=== PATIENT | female | born 1980 | race Caucasian/White ===

== ENCOUNTER 2021-06-28 13:46 | Outpatient (CLI) | payer BC, OTHER, SELFPAY ==
--- NOTE | ~2021-06-28 | US_ITS ---
EXAMINATION: US soft tissue UE LT DATE: 06/28/2021 14:09 INDICATION: Localized swelling at the posterior left shoulder TECHNIQUE: Multiple grayscale and Doppler ultrasound images of the region of concern posterior to the left shoulder were obtained. COMPARISON: None FINDINGS/IMPRESSION: Nonspecific 3.9 x 3.2 x 1.3 cm ovoid mass at the region of concern. 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 Reviewed, dictated and finalized at location A.
== END 2021-06-28 13:47 ==
PROVIDERS: PCP Physician Assistant; Visit Provider Physician Assistant
DX: R22.32 Localized swelling, mass and lump, left upper limb (principal)
CPT/HCPCS: 76882

== ENCOUNTER 2021-08-21 00:42 | Observation (INO) | payer BC, SELFPAY ==
[2021-08-21] VITALS (16 sets, daily range): BP systolic 102–147; BP diastolic 58–109; PULSE 62–180; RESP 12–20; TEMP 36.1–36.9; O2SAT 99–100; BMI 34.2; BMI 34.1
--- NOTE | ~2021-08-21 | XR_ITS ---
EXAMINATION: XR chest 1V portable DATE: 08/21/2021 02:08 INDICATION: Tachycardia. Palpitations. TECHNIQUE: frontal view of the chest was obtained. COMPARISON: None FINDINGS: The lungs are clear with no focal airspace opacities, pulmonary edema, pleural effusion or pneumothor ax. The cardiomediastinal silhouette is normal. Visualized bones and soft tissues are unremarkable. IMPRESSION: 1. No acute cardiopulmonary disease. Reviewed, dictated and finalized at location A.
--- NOTE | 2021-08-21 00:45 | PC.NURSE ---
Addendum entered by Clarissa Jaramillo RN 08/21/21 00:47: Patients HR. Original Note: During triage, patients ranged from 60s-130s.
--- NOTE | 2021-08-21 01:17 | PC.NURSE ---
Addendum entered by Tyrone Wright RN 08/21/21 01:21: Pt was placed on defibrillator at the time of this procedure. Original Note: Pt brought to room and placed on athletic monitor and heart rate found to be in the 190's. Dr. Dooley notified and brought to the bedside. VORB received and administered for 6mg of adenosine at 0058. 12mg administered at 0002, with another 12 administered at 0105. Pt has not been responsive to the medication. Synchronized cardioversion suggested to pt but pt and father decide against electricity at this time. Will take a medication management route at this time.
--- NOTE | 2021-08-21 01:19 | ECG_ITS ---
Measurements Intervals [place] Rate: 0 P: MN: 0 QRS: QRSD: 0 T: QT: 0 QTc: 0 Interpretive Statements ATRIAL FIBRILLATION WITH RAPID VENTRICULAR RESPONSE BORDERLINE ST-T WAVE ABNORMALITY- DIFFUSE LEADS BASELINE ARTIFACT- I, II, AVR, AVL, AVF, V4-V6 ABNORMAL ECG Electronically Signed On 08-21-2021 6:53:04 CDT by Jermain Jalloh D.O.
[2021-08-21] MEDS: dilTIAZem HCl INJ 25 MG/5 ML VIAL 10 MG IV PUSH (01:22)
[2021-08-21] MEDS: dilTIAZem 100 MG/100 ML 100 MG/100 ML BAG IV CONT (01:23)
[2021-08-21] MEDS: SODIUM CHLORIDE 0.9% IV 1,000 ML 999 ML IV CONT (01:24)
--- NOTE | 2021-08-21 01:25 | ECG_ITS ---
Measurements Intervals [place] Rate: 125 P: MO: 0 QRS: 53 QRSD: 99 T: 31 QT: 310 QTc: 447 Interpretive Statements ATRIAL FIBRILLATION WITH RAPID VENTRICULAR RESPONSE ABNORMAL ECG Electronically Signed On 08-21-2021 6:53:29 CDT by Jermain Jalloh D.O.
[2021-08-21 01:26] LABS: Basophils Absolute Auto 0.1 K/mm3 (0.0-0.1); Basophils Percent Auto 0.5 % (0.2-1.2); Eosinophils Absolute Auto 0.2 K/mm3 (0-0.3); Eosinophils Percent Auto 1.9 % (0-4.4); Hematocrit 34.4 % (37.0-47.0); Hemoglobin 9.8 g/dL (12.0-15.0); Immature Granulocyte Absolute 0.03 K/mm3 (0.00-0.031); Immature Granulocyte Percent A 0.3 % (0-0.5); Lymphocytes Absolute Auto 3.21 K/mm3 (0.9-3.2); Lymphocytes Percent Auto 33.8 % (18.3-44.2); Mean Corpuscular HGB Conc 28.5 g/dl (32-36); Mean Corpuscular Hemoglobin 19.8 pg (26-34); Mean Corpuscular Volume 69.6 fl (80-100); Mean Platelet Volume 10.3 fl (7.4-10.4); Monocytes Absolute Auto 0.8 K/mm3 (0.1-0.6); Neutrophils Absolute Auto 5.3 K/mm3 (1.3-6.7); Neutrophils Percent Auto 55.5 % (45.5-73.1); Platelet Count Result 331 k/mm3 (150-375); Red Blood Count 4.94 M/mm3 (4.2-5.4); Red Cell Distribution Width 19.1 % (11.5-14.5); White Blood Count 9.5 K/mm3 (4.5-10.0)
[2021-08-21 01:39] LABS: Alanine Aminotransferase 19 U/L (6-35); Albumin Level 4.6 g/dL (3.5-5.1); Alkaline Phosphatase 87 U/L (38-126); Anion Gap 5 mmol/L (8-16); Aspartate Amino Transferase 34 U/L (14-36); Bilirubin,Total 0.4 mg/dL (0.2-1.3); Blood Urea Nitrogen 16 mg/dL (7-17); Calcium 9.1 mg/dL (8.4-10.2); Carbon Dioxide 26 mmol/L (22-30); Chloride 105 mmol/L (98-107); Estimated Glomerular Filt Rate > 60; Glucose 101 mg/dL (65-110); Potassium 3.6 mmol/L (3.4-5.0); Sodium 136 mmol/L (137-145)
[2021-08-21 01:51] LABS: Add Urine Microscopic? NO; Appearance Urine Clear (Clear); Bilirubin Urine Negative (Negative); Blood Urine Negative (Negative); Color Urine Yellow (Yellow); Glucose Urine UA Negative (Negative); Ketones Urine Negative (Negative); Leukocyte Esterase Ur Negative LEU/UL (Negative); Nitrate Urine Negative (Negative); Protein Urine Negative (Negative); Urobilinogen Urine 0.2 mg/dL (<2.0)
[2021-08-21] MEDS: ADENOSINE IV SOLN 6 MG/2 ML VIAL IV PUSH (01:54)
[2021-08-21 01:55] LABS: Mucus Urine Rare /lpf; Squamous Epithelial Cell Urine Rare /hpf (Few); WBC Urine 0-3 /hpf
[2021-08-21] MEDS: ADENOSINE IV SOLN 6 MG/2 ML VIAL 12 MG IV PUSH ×2 (01:55→01:56)
[2021-08-21 01:58] LABS: Anisocytosis 2+ (NORMAL); Hypochromasia 3+ (NORMAL); Microcytosis 2+ (NORMAL); Platelet Estimate Adequate (Adequate)
[2021-08-21 01:59] LABS: Stomatocytes 1+ (NORMAL)
--- NOTE | 2021-08-21 02:14 | ED.ARRPALP ---
HPI - Arrhythmia/Palpitations General Chief Complaint: Arrhythmia/Palpitations Stated Complaint: Rapid HR Time Seen by Provider: 08/21/21 00:51 Source: patient History of Present Illness HPI narrative: Patient presents with palpitations. Patient reports her symptoms started just prior to coming to the emergency room she denies any chest pain just feels like her heart rate is really fast. Denies any prior similar symptoms denies any history of cardiac arrhythmias. Denies any recent fevers, cough, congestion denies any abdominal pain nausea vomiting or diarrhea. Related Data Allergies Allergy/AdvReac Type Severity Reaction Status Date / Time No Known Allergies Allergy Unverified 07/01/20 11:20 Review of Systems Review of Systems: CONSTITUTIONAL: Denies fever, chills, or sweats. EYES: Denies visual changes, redness, or discharge. ENT: Denies rhinorrhea, congestion, sore throat, or otalgia. CARDIOVASCULAR: Denies chest pain,or edema. RESPIRATORY: Denies cough or dyspnea. GASTROINTESTINAL: Denies abdominal pain, nausea, vomiting, or diarrhea. GENITOURINARY: Denies dysuria or hematuria. SKIN: Denies rash or itching. MUSCULOSKELETAL: Denies back pain, joint pain, or myalgia. NEUROLOGIC: Denies headache, numbness, dizziness, or weakness. PSYCHIATRIC: Denies anxiety or depression. All systems reviewed & are unremarkable except as noted in HPI and below PMFSH Surgical History Surgical History (Updated 08/21/21 @ 02:22 by Bk Dooley MD) H/O gastric bypass Family History Family History Father Family history of obesity Mother Family history of obesity Family history of mental disorder Sibling Family history of obesity Family history of attention deficit hyperactivity disorder (ADHD) Grandparent Family history of obesity Social History Social History Smoking status: Never smoker Second hand tobacco smoke exposure: No Alcohol intake: current Drinks per week: 0 Substance use type: does not use Spiritual care concerns: No Exam Narrative: GENERAL: Well-appearing, well-nourished, and in no acute distress. HEAD: Normocephalic, atraumatic. EYES: PERRLA and EOMI. ENT: Nares clear, no rhinorrhea or epistaxis. Mucous membranes moist. NECK: Supple. No masses. No JVD CHEST: Clear to auscultation. No respiratory distress. No wheezes rales or rhonchi HEART: Tachycardia. Normal peripheral pulses. ABDOMEN: Soft, nontender, nondistended, normal active bowel sounds. EXTREMITIES: Normal range of motion. No edema. SKIN: Warm, dry, no rash. NEURO: No focal deficits. Alert and oriented x3. PSYCH: Normal mood and affect. Course Reevaluation(s) Reevaluation #1: Patient reports feeling much improved results thus far reviewed with patient. Patient is comfortable inpatient plan. Date: 08/21/21 Time: 02:24 Vital Signs Vital signs: Vital Signs Pulse Rate 97 08/21/21 00:43 Respiratory Rate 20 08/21/21 00:43 Blood Pressure 147/109 H 08/21/21 00:43 Pulse Oximetry 100 08/21/21 00:43 Oxygen Delivery Room Air 08/21/21 00:43 Temperature 36.1 C L 08/21/21 03:39 Pulse Rate 120 H 08/21/21 03:39 Respiratory Rate 12 08/21/21 03:39 Blood Pressure 108/59 L 08/21/21 03:39 Pulse Oximetry 100 08/21/21 03:39 Oxygen Delivery Room Air 08/21/21 00:43 MDM - Arrhythmia/Palpitations MDM Narrative Medical decision making narrative: Patient presents with palpitations patient was tachycardic to the 200s concerning for SVT. Attempted vagal maneuvers without successdefibrillator was placed patient was given 6 then 12 then 12 of adenosine and there was a pause in her rate however patient continued to return to a heart rate in the 200s. Given lack of success with IV medications I discussed synchronized cardioversion patient initially amenable to it however patient talk to her father wa
--- NOTE | 2021-08-21 02:20 | PC.NURSE ---
Diltiazim drip titrated to 10mg/hr at this time.
--- NOTE | 2021-08-21 02:38 | PM.IMHP ---
H&P: HPI History of Present Illness Date/Time: 08/21/21 02:38 Chief Complaint: Rapid heart rate Narrative: 41-year-old female with a past medical history of obesity status post gastric sleeve and depression who presented to the ER with sudden onset of rapid heart rate. Patient reported that she was watching TV just for Thanh go to bed when all the sudden she felt a rapid heart rate. It was accompanied by sensation of shortness of breath and unable to catch her breath. She reported that her chest felt tight. She had her report drive her to the ER. When she arrived to the ER rate was in the 200s. It was initially thought that she was in SVT. received total of 3 doses of adenosine. Given that the patient's heart rate was still in the 180s the potential for possible electrical cardioversion was discussed with patient by the ER provider. The patient declined procedure after discussing with her father who worked in the chemical lab supervisor at [employer]. The patient was subsequently given 10 mg push of Cardizem and started on Cardizem drip. With the initiation of Cardizem drip became more clear patient was in atrial fibrillation with rapid ventricular response. Patient's Cardizem drip was increased to 10 mg while still in the ER as her heart rates are staying in the 120s to 140 range. With increase in her Cardizem are rate came down to 100-120 range. With improvement in her heart rate patient's sensation of shortness of breath improved. She denied any nausea or diaphoresis with onset of symptoms. She has never had symptoms like this before. She had not had a history of any palpitations. She has not had any lower extremity swelling, weight loss, diarrhea or hair loss. Her TSH was normal. She has not had any recent adjustments in her ADHD medications. She did recently have her antidepressant increased and was sleeping more than usual at that time. But when her antidepressant was decreased back down to her current level her symptoms resolved. The she denies any excessive caffeine use or supplement use. She has not been vaccinated against COVID because her father developed cardiac rhythm changes after his COVID vaccine the resulted in him retiring early. She has no other family history of cardiac rhythm issues. Review of Systems Review of Systems: 12 systems were reviewed with pertinent positives and negatives per HPI. Except as documented in the HPI, all other systems were reviewed and are negative. [facility] Past Medical History Medical History (Updated 08/21/21 @ 04:56 by Spring Hanks DO) ADHD Depression Obstructive sleep apnea Resolved after weight loss surgery Surgical History Surgical History (Updated 08/21/21 @ 04:56 by Spring Hanks DO) History of 2 sections History of sleeve gastrectomy (~2019) Family History Family History (Updated 08/21/21 @ 05:08 by Spring Hanks DO) Father Family history of obesity Sinus tachycardia Patient developed cardiac rhythm issues after receiving the COVID vaccine and had to take early correction. Mother Family history of obesity Family history of mental disorder Sibling Family history of obesity Family history of attention deficit hyperactivity disorder (ADHD) Grandparent Family history of obesity Social History Social History (Updated 08/21/21 @ 04:58 by Spring Hanks DO) Smoking packs per day: 0.5 Smoking cigarettes per day: 10.0 Years smoked: 10 Smoking pack-years: 5.00 Smoking status: Former smoker Tobacco type: cigarettes Second hand tobacco smoke exposure: No Smoking end date: 02/12/06 Alcohol intake: current Drinks per week: 0 Substance use type: does not use Additional living arrangements comments: She is and has 3 children. Her youngest child is 5 years old. They live in [place]. 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 Spiritual care concerns: No Meds
[2021-08-21 02:46] LABS: Phosphorus 3.4 mg/dL (2.5-4.5)
--- NOTE | 2021-08-21 03:37 | ADMGEN ---
This patient, Bev Lopez, was admitted to IMU Room 209-01 @0330. Patient/family oriented to hospital policies and general routines including ID bracelet, bed and alarms, visiting hours, pain management, procedures, bathroom and other care routines, personal items, smoking policy, room service/diet, and visiting hours. Information on how to activate the Rapid Response Team has been discussed. Patient/Family are encouraged to report perceived risks to care and to ask questions if they do not understand what they are told or what they should do.
[2021-08-21] MEDS: ENOXAPARIN 100 MG/ML SYRINGE SUB-Q (06:26)
--- NOTE | 2021-08-21 10:19 | PM.CNCAR ---
Assessment and Plan Assessment and plan (1) Atrial fibrillation with RVR: Code(s): I48.91 - Unspecified atrial fibrillation Status: Acute Assessment and Plan: 41-year-old female with ADHD, depression, ?obesity status post gastric sleeve, chronic anemia, history of COVID 19 infection in January 2020. Patient admitted to the hospital with sudden onset of palpitations that started last night. She was found to be in atrial fibrillation with rapid ventricular response, and has been on IV diltiazem with improvement in the heart rate but still remains in atrial fibrillation. Patient denies any prior history of known arrhythmias. TSH normal at 2.99. After discussing benefits, risks and alternatives, patient is willing to proceed with DC cardioversion to restore sinus rhythm. Her symptoms started within the last 24 hours, therefore, MIRA is not indicated for cardioversion. Patient has already received low-molecular weight heparin, last night and this morning. Post cardioversion, she will be switched to anticoagulation with apixaban 5 mg p.o. b.i.d. for at least 4 weeks. Patient will have echocardiogram with Doppler to rule out any major structural heart disease. She will be referred to electrophysiology as an outpatient if she has recurrent atrial fibrillation. Plan discussed with patient and she is in agreement. History of Present Illness History of Present Illness Consult date/time: 08/21/21 10:19 Requesting physician: Bk Dooley MD Reason For Visit: Afib w/RVR Narrative: DATE OF CONSULT: 08/21/2021 REASON FOR CONSULT: AFib with RVR REQUESTING PHYSICIAN:Bk Dooley MD CHIEF COMPLAINT: Palpitations HPI: 41-year-old female with ADHD, depression, ?obesity status post gastric sleeve, chronic anemia, history of COVID 19 infection in January 2020. Patient presented to [facility] Emergency Room on the night of 08/21/2021 with complaints of palpitations. Patient states that she was watching TV when she suddenly started having palpitations associated with shortness of breath, dizziness and chest pressure. She was brought to the [facility] ER. She denied any known prior cardiac history including any known arrhythmias. Patient states that she is otherwise healthy, and does not have any limitations with activity. She denies any recent travel. She gives history of chronic anemia. She states that she has to take iron supplements in the past. She states that she has been evaluated by Hematology at outside hospital, and does not know the exact etiology of her anemia. She denies any overt bleeding at present, however did report heavy menses. Her heart rate was found to be in 200s, and patient was given at 3 doses of adenosine in the emergency room, which did not terminate the arrhythmia. She was subsequently initiated on IV diltiazem, and heart rate slowed down. EKG on my personal evaluation showed atrial fibrillation with RVR. Chest x-ray unremarkable. TSH normal at 2.99. On telemetry, patient is in atrial fibrillation with heart rates in 80s to 90s. She is currently on IV diltiazem. Review of Systems Review of Systems: General: Negative for fever, chills, fatigue Psychological: Positive for for anxiety, depression Ophthalmic: negative for loss of vision ENT: Negative for epistaxis, headaches Allergy and immunology: Negative for hives, nasal congestion Hematologic and lymphatic: Positive for chronic anemia Endocrine: Negative for hot flashes, palpitations Respiratory: Negative for cough, hemoptysis Cardiovascular: Positive for palpitations, dizziness which have improved after normalization heart rate Gastrointestinal: Negative for abdominal pain, nausea, vomiting, hematochezia Musculoskeletal: Negative for myalgia, joint pains Neurological: Negative for weakness Dermatological: Negative for rash, skin discoloration PMFSH Past Medical History Medical History (Reviewed 08/21/21 @ 10:2
--- NOTE | 2021-08-21 10:53 | WPDMODSED ---
Moderate Sedation Note-Pt Data Patient Data Allergies Allergy/AdvReac Type Severity Reaction Status Date / Time No Known Allergies Allergy Unverified 07/01/20 11:20 Home Medications Medication Instructions Recorded Confirmed Type dextroamphetamine-amphetamine 10 1 tablet PO BID 08/21/21 08/21/21 History mg tablet duloxetine 60 mg capsule,delayed 30 mg PO DAILY 08/21/21 08/21/21 History release Current Medications: Active Medications Apixaban (Apixaban 5 Mg Tablet) 5 mg PO Q12HR YARON Duloxetine HCl (Duloxetine Hcl 30 Mg Capsule.Dr) 30 mg PO DAILY YARON Diltiazem HCl (Cardizem 100 Mg/100 Ml) 100 mg in 100 mls @ 5 mls/hr IV CONT .Q20H STA; Protocol Stop: 08/21/21 21:18 Last Titration: 08/21/21 02:20 Dose: 10 mg/hr, 10 mls/hr Acetaminophen (Ofirmev 1,000 Mg Ivpb) 1,000 mg in 100 mls @ 400 mls/hr IVPB Q6H PRN PRN Reason: Mild Pain (1-3) or Fever Stop: 08/22/21 02:34 Perflutren Lipid Microsphere (Perflutren Lipid Microspheres 1.5 Ml Vial Diluted To 10 Ml Total Volume) 0 ml IV PUSH ONCE PRN; Protocol PRN Reason: adequate visualization Sedation/Anesthesia: No previous sedation/anesthesia problems (including family history). [facility] Past Medical History Medical History ADHD Depression Obstructive sleep apnea Resolved after weight loss surgery Surgical History Surgical History History of 2 sections History of sleeve gastrectomy (~2019) Family History Family History Father Family history of obesity Sinus tachycardia Patient developed cardiac rhythm issues after receiving the COVID vaccine and had to take early group home. Mother Family history of obesity Family history of mental disorder Sibling Family history of obesity Family history of attention deficit hyperactivity disorder (ADHD) Grandparent Family history of obesity Social History Social History Smoking packs per day: 0.5 Smoking cigarettes per day: 10.0 Years smoked: 10 Smoking pack-years: 5.00 Smoking status: Former smoker Tobacco type: cigarettes Second hand tobacco smoke exposure: No Smoking end date: 02/12/06 Alcohol intake: current Drinks per week: 0 Substance use type: does not use Additional living arrangements comments: She is and has 3 children. Her youngest child is 5 years old. They live in [place]. 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 Spiritual care concerns: No Mod Sed Physical Exam Physical Exam Pre Procedural Exam: Normal: Airway Hours since solid foods: 10 Hours since liquid intake: 10 Mallampati Classification: class II Internal Medicine - PN: Obj Da Vital Signs Vital Signs: Vital Signs - 24 hr 08/21/21 00:43 08/21/21 01:23 08/21/21 01:40 Temperature Pulse Rate 97 180 H 118 H Respiratory Rate 20 18 Blood Pressure 147/109 H 112/84 Pulse Oximetry 100 100 Oxygen Delivery Room Air 08/21/21 02:20 08/21/21 02:33 08/21/21 03:10 Temperature 36.3 C L Pulse Rate 137 H 124 H 117 H Respiratory Rate 16 16 Blood Pressure 102/69 107/69 105/66 Pulse Oximetry 99 100 Oxygen Delivery 08/21/21 03:39 08/21/21 06:00 08/21/21 07:56 Temperature 36.1 C L 36.7 C Pulse Rate 120 H 98 89 Respiratory Rate 12 16 Blood Pressure 108/59 L 104/58 L Pulse Oximetry 100 100 Oxygen Delivery 08/21/21 04:00 08/21/21 08:00 Temperature Pulse Rate 110 H 90 Respiratory Rate Blood Pressure Pulse Oximetry Oxygen Delivery Intake/Output Intake/Output: Intake & Output 08/18/21 08/19/21 08/20/21 08/21/21 23:59 23:59 23:59 23:59 Intake Total 1000 Balance 1000 Meds/Results Medications: Active Medications Generic Name Dose Route Start Last Admin Trade Name Freq PRN Reason St
--- NOTE | 2021-08-21 11:06 | ECG_ITS ---
Measurements Intervals [place] Rate: 52 P: 19 MN: 151 QRS: 27 QRSD: 89 T: 30 QT: 420 QTc: 394 Interpretive Statements SINUS BRADYCARDIA BORDERLINE ECG Electronically Signed On 08-21-2021 21:20:02 CDT by Jermain Jalloh D.O.
--- NOTE | 2021-08-21 11:11 | PC.NURSE ---
Took pt to ICU bed 1 for cardioversion, pt placed on 5L nasal cannula, placed on monitor and pacer pads on and connected to defibrillator. Dr. Bruns at bedside and Dr. Castle pushed 60mg of propofol then assessed level of consciousness. Synced heart rate and charge to 200 joules, shocked times 1 and sinus bradycardia in the 50's. EKG obtained and patient regained consciousness. Pt transferred back to 209 with LASHAE Silverman at bedside.
--- NOTE | 2021-08-21 11:16 | P.PCNTEECA_ITS ---
MIRA with Cardioversion Date of procedure: 08/21/21 Description of Procedure: DATE OF PROCEDURE: 08/21/2021 INDICATION FOR PROCEDURE: Symptomatic atrial fibrillation with RVR BRIEF CLINICAL HISTORY: 41-year-old female with ADHD, depression, ?obesity status post gastric sleeve, chronic anemia, history of COVID 19 infection in January 2020. Patient admitted to the hospital with sudden onset of palpitations that started last night.? She was found to be in atrial fibrillation with rapid ventricular response, and has been on IV diltiazem with improvement in the heart rate but still remains in atrial fibrillation.? Patient denies any prior history of known arrhythmias.? TSH normal at 2.99. After discussing benefits, risks and alternatives, patient was willing to proceed with DC cardioversion to restore sinus rhythm.? Her symptoms started within the last 24 hours, therefore, MIRA is not indicated for cardioversion.? Patient has already received low-molecular weight heparin, last night and this morning. PROCEDURES PERFORMED: 1. Successful synchronized DC cardioversion with presybeterian of sinus rhythm 2. Moderate sedation -CPT 38032 SEDATION: Propofol 60 mg IV in 2 divided doses ; start time 1100 minutes, stop time 1110 minutes; total [id number] time 10 minutes; Andra Lentz RN was trained observer for the moderate sedation. PROCEDURE: Informed consent was taken prior to the procedure. Patient was taken to the ICU for IV sedation. Transcutaneous pads had already been placed in the right parasternal and left axillary positions. After adequate conscious sedation with IV propofol, synchronized DC cardioversion was performed with 200 joules x 1 with presybeterian of sinus rhythm. on telemetry, patient was in sinus bradycardia with heart rates in 50s. Patient tolerated procedure well without any immediate procedure related complications. RECOMMENDATIONS: Conclusion: CONCLUSIONS:Successful synchronized DC cardioversion with presybeterian of sinus rhythm. PLAN/RECOMMENDATIONS: Anticoagulation with apixaban 5 mg p.o. b.i.d. for at least 4 weeks. Patient will also have echocardiogram with Doppler to rule out any major structural heart disease. She was advised to follow-up in the outpatient cardiology clinic for further cardiovascular management.
[2021-08-21] MEDS: PROPOFOL IV EMULSION 200 MG/20 ML VIAL (11:37)
--- NOTE | 2021-08-21 15:48 | PM.DS ---
DS: Admitting Diagnosis Discharge Date 08/21/2021 Admitting Diagnosis palpitation DS: Discharge Diagnosis Discharge Diagnosis (1) Atrial fibrillation with RVR: Code(s): I48.91 - Unspecified atrial fibrillation Status: Acute Assessment and Plan: New onset AFib RVR. It sounds as if the patient's symptoms started suddenly and she has had no prior episodes of palpitations or concern for intermittent AFib previously. Patient is refused electrical cardioversion at this time. Her father did not want her to be cardioverted without being premedicated with anticoagulants. Patient has received 1 time dose of therapeutic Lovenox. Patient's heart rate is coming down with Cardizem. I am hopeful the patient will cover back to sinus rhythm soon. The will order echocardiogram in a.m. to further evaluate patient's cardiac structure and function. Cardiology has been consulted. Plan Patient has been admitted as observation status. DS: Summary Hospital Course Reason for hospitalization: Chief Complaint: Rapid heart rate Narrative: 41-year-old female with a past medical history of obesity status post gastric sleeve and depression who presented to the ER with sudden onset of rapid heart rate.? Patient reported that she was watching TV just for Thanh go to bed when all the sudden she felt a rapid heart rate.? It was accompanied by sensation of shortness of breath and unable to catch her breath.? She reported that her chest felt tight.? She had her report drive her to the ER.? When she arrived to the ER rate was in the 200s.? It was initially thought that she was in SVT. ? received total of 3 doses of adenosine.? Given that the patient's heart rate was still in the 180s the potential for possible electrical cardioversion was discussed with patient by the ER provider.? The patient declined procedure after discussing with her father who worked in the manager cardiac cath at [facility].? The patient was subsequently given 10 mg push of Cardizem and started on Cardizem drip.? With the initiation of Cardizem drip became more clear patient was in atrial fibrillation with rapid ventricular response.? Patient's Cardizem drip was increased to 10 mg while still in the ER as her heart rates are staying in the 120s to 140 range.? With increase in her Cardizem are rate came down to 100-120 range.? With improvement in her heart rate patient's sensation of shortness of breath improved.? She denied any nausea or diaphoresis with onset of symptoms.? She has never had symptoms like this before.? She had not had a history of any palpitations.? She has not had any lower extremity swelling, weight loss, diarrhea or hair loss.? Her TSH was normal.? She has not had any recent adjustments in her ADHD medications.? She did recently have her antidepressant increased and was sleeping more than usual at that time.? But when her antidepressant was decreased back down to her current level her symptoms resolved.? The she denies any excessive caffeine use or supplement use. She has not been vaccinated against COVID because her father developed cardiac rhythm changes after his COVID vaccine the resulted in him retiring early.? She has no other family history of cardiac rhythm issues. Hospital Course: 41-year-old morbidly obese female presented emergency depart with complaint of palpitation was found to have new onset atrial fibrillation with RVR patient was started on diltiazem drip to lower heart rate, patient remained clinically stable, patient was seen by caul dresser since it was new onset AFib with RVR less than 24 patient had a DC cardioversion without MIR[facility] and converted and patient remained in sinus rhythm, patient is clinically stable will discharge the patient on oral regimen and patient will follow-up with her caul dresser. Time Spent with Patient Time attestation: Total time spent providing and/or coordinating discharge services: Exam Narrative: Marvin
--- NOTE | 2021-08-21 16:59 | PC.NURSE ---
Patient discharged to home at 1643. Education was provided on follow-up, bleeding precautions, meds, and when to call the provider. Patient and family had no further questions at this time.
== END 2021-08-21 16:43 | disposition home or self-care (01) ==
LOC: ANHED 02:30 → ANHIMU 04:05
PROVIDERS: Admitting Provider Internal Medicine; Emergency Provider Emergency Medicine; PCP Physician Assistant; Visit Provider Family Medicine
DX: I48.91 Unspecified atrial fibrillation (principal); G47.33 Obstructive sleep apnea (adult) (pediatric); F32.A Depression, unspecified; F90.9 Attention-deficit hyperactivity disorder, unspecified type; Z87.891 Personal history of nicotine dependence; Z98.84 Bariatric surgery status; Z86.16 Personal history of COVID-19
CPT/HCPCS: 36415; 71045; 80053; 81003; 83735; 84100; 84443; 85025; 92960; 93005; 96365; 96372; 99285; G0378; J0153; J1650; J2704; J7030